=== PATIENT | male | born 1960 | race African-American/Black ===

== ENCOUNTER → 2021-08-11 | Outpatient (CLI) | payer OTHER | LOC: M RAD 10:44 | PROVIDERS: ATTEND Internal Medicine | DX: R80.9 Proteinuria, unspecified (principal) ==

== ENCOUNTER 2022-03-21 20:08 | Emergency (ER) | payer OTHER ==
[2022-03-21] MEDS ORDERED: ISOVUE-370 76% 100ML VIAL As Ordered ONE ×2 (20:17→21:12)
[2022-03-21 20:28] LABS: VENOUS BASE EXCESS 0.7 (-2.0-2.0); VENOUS HCO3 27.6 MEQ/L (23.0-27.0); VENOUS O2 SATURATION 63.5 % (60.0-80.0); VENOUS PARTIAL PRESSURE CO2 52.6 mmHg (38.0-50.0); VENOUS PARTIAL PRESSURE O2 36.4 mmHg (30.0-50.0); VENOUS PH 7.337 UNITS (7.330-7.430); VENOUS STANDARD HCO3 24.2 MEQ/L; VENOUS TOTAL CO2 29.2 MEQ/L (24.0-28.0)
[2022-03-21 20:33] LABS: BASO # 0.1 10^3/uL (0.0-0.2); BASO % 1.1 % (0.0-1.0); EOS # 0.1 10^3/uL (0.0-0.5); EOS % 0.8 % (0.0-3.0); HEMATOCRIT 43.2 % (42.0-52.0); HEMOGLOBIN 14.2 g/dl (13.5-17.5); LYMPH # 1.5 10^3/uL (1.5-5.0); LYMPH % 24.2 % (24.0-44.0); MEAN CORPUSCULAR HGB CONC 32.9 g/dl (32.0-36.5); MEAN CORPUSCULAR VOLUME 91.1 fl (80.0-96.0); MONO # 0.6 10^3/uL (0.0-0.8); MONO % 9.4 % (2.0-8.0); NEUTROPHILS # 4.1 10^3/uL (1.5-8.5); NEUTROPHILS % 63.9 % (36.0-66.0); PLATELET COUNT, AUTOMATED 235 10^3/uL (150-450); RED BLOOD COUNT 4.74 10^6/uL (4.30-6.10); WHITE BLOOD COUNT 6.4 10^3/uL (4.0-10.0)
[2022-03-21 20:44] LABS: HEMOGLOBIN A1c 10.1 % (4.0-6.0)
[2022-03-21 20:45] LABS: INR 1.11; PARTIAL THROMBOPLASTIN TIME 28.8 SECONDS (24.8-34.2); PROTHROMBIN TIME 14.5 SECONDS (12.5-14.5)
[2022-03-21] MEDS ORDERED: TENECTEPLASE 50 MG KIT (TNKase) IVP ONE (20:45)
[2022-03-21 20:56] LABS: LIPASE 31 U/L (12-53)
[2022-03-21 20:57] LABS: ETHYL ALCOHOL (ETHANOL) 0.005 % (0.000-0.010)
[2022-03-21 20:58] LABS: ALBUMIN 3.2 G/DL (3.2-5.2); ALKALINE PHOSPHATASE 82 U/L (46-116); ALT/SGPT 120 U/L (7.0-40); AST/SGOT 82 U/L (<34); BILIRUBIN,DIRECT 0.3 MG/DL (<0.4); BILIRUBIN,TOTAL 0.7 MG/DL (0.3-1.2); BLOOD UREA NITROGEN 15 MG/DL (9-23); CARBON DIOXIDE LEVEL 26 MMOL/L (20-31); CHLORIDE LEVEL 105 MMOL/L (98-107); CK-MB VALUE MASS 1.3 NG/ML (<3.6); CPK CREATINE PHOSPHOKINASE 192 U/L (46-171); CREATININE FOR GFR 1.19 MG/DL (0.70-1.30); GLOMERULAR FILTRATION RATE > 60.0 (>49); GLUCOSE, FASTING 242 MG/DL (74-106); MB/CK RELATIVE INDEX 0.67 (< OR =4); POTASSIUM SERUM 4.9 MMOL/L (3.5-5.1); SODIUM LEVEL 141 MMOL/L (136-145); TOTAL PROTEIN 6.2 G/DL (5.7-8.2)
[2022-03-21 20:59] LABS: OSMOLALITY SERUM 303 MOSM/KG (280-301)
[2022-03-21 21:03] LABS: RSV AMPLIFICATION NEGATIVE (NEGATIVE)
[2022-03-21] MEDS ORDERED: LABETALOL 100MG/20ML VIAL IV PRN (21:10)
[2022-03-21] MEDS ORDERED: SODIUM CHLORIDE 0.9% INJ 10 ML SYR IV ONE ×2 (22:00)
[2022-03-21] MEDS ORDERED: NS 1,000 ML IV ONE (22:00)
[2022-03-21 22:16] VITALS: BP 204/104
[2022-03-21 22:17] LABS: CK-MB VALUE MASS 1.5 NG/ML (<3.6)
[2022-03-21 22:19] LABS: MB/CK RELATIVE INDEX 0.82 (< OR =4)
== END 2022-03-21 22:27 | disposition short-term general hospital (02) ==
LOC: EDBD 20:08 → M ED 21:29
DX: I63.9 Cerebral infarction, unspecified (principal); I99.8 Other disorder of circulatory system; E11.9 Type 2 diabetes mellitus without complications; E78.5 Hyperlipidemia, unspecified

== ENCOUNTER 2022-06-27 09:26 | Outpatient (RCR) | payer OTHER | END 2022-07-01 | LOC: M OT 09:26 | PROVIDERS: ATTEND Physical Medicine & Rehabilitation | DX: G46.3 Brain stem stroke syndrome (principal) ==

== ENCOUNTER → 2022-06-27 | Outpatient (CLI) | payer OTHER ==
[~2022-06-27] MED LIST: BARIUM SULFATE 700 MG TABLET (E-Z-DISK) As Ordered ONE; E-Z-PAQUE 96% w/w SUSP 176GM BTL As Ordered ONE; VARIBAR NECTAR 40% w/v 240ML SUSP BTL As Ordered ONE; VARIBAR PUDDING 40% w/v 230ML TUBE As Ordered ONE
== END ==
LOC: M RAD 10:43
PROVIDERS: ATTEND Internal Medicine
DX: I69.321 Dysphasia following cerebral infarction (principal)

== ENCOUNTER 2022-07-25 10:20 | Outpatient (RCR) | payer OTHER | END 2022-08-01 | LOC: M ST 10:20 | PROVIDERS: ATTEND Physical Medicine & Rehabilitation | DX: G46.3 Brain stem stroke syndrome (principal); R13.12 Dysphagia, oropharyngeal phase; I69.390 Apraxia following cerebral infarction ==

== ENCOUNTER 2022-08-28 09:54 | Outpatient (RCR) | payer OTHER | END 2022-08-31 | LOC: M ST 09:54 | PROVIDERS: ATTEND Physical Medicine & Rehabilitation | DX: G46.3 Brain stem stroke syndrome (principal); R13.12 Dysphagia, oropharyngeal phase; I69.390 Apraxia following cerebral infarction ==

== ENCOUNTER 2022-09-27 11:14 | Outpatient (RCR) | payer OTHER | END 2022-10-01 | LOC: M ST 11:14 | PROVIDERS: ATTEND Physical Medicine & Rehabilitation | DX: G46.3 Brain stem stroke syndrome (principal) ==

== ENCOUNTER 2022-10-07 20:30 | Emergency (ER) | payer OTHER ==
[~2022-10-07] VITALS: Ht 180.3 cm; Wt 96.8 kg
[2022-10-08 00:21] VITALS: BP 210/102
[2022-10-08] MEDS ORDERED: LABETALOL 100MG/20ML VIAL IV STA (00:21)
[2022-10-08] MEDS ORDERED: APIXABAN 5 MG TAB (ELIQUIS) PO ONE (00:30)
[2022-10-08 01:30] VITALS: BP 158/72; TEMP 98
[2022-10-08 01:35] LABS: BASO % 0.6 % (0.0-1.0); EOS # 0.1 10^3/uL (0.0-0.5); EOS % 1.5 % (0.0-3.0); HEMATOCRIT 39.6 % (42.0-52.0); HEMOGLOBIN 13.3 g/dl (13.5-17.5); LYMPH # 1.5 10^3/uL (1.5-5.0); MEAN CORPUSCULAR HEMOGLOBIN 29.5 pg (27.0-33.0); MEAN CORPUSCULAR HGB CONC 33.6 g/dl (32.0-36.5); MEAN CORPUSCULAR VOLUME 87.8 fl (80.0-96.0); MONO # 0.6 10^3/uL (0.0-0.8); MONO % 11.9 % (2.0-8.0); NEUTROPHILS # 2.4 10^3/uL (1.5-8.5); NEUTROPHILS % 52.8 % (36.0-66.0); PLATELET COUNT, AUTOMATED 149 10^3/uL (150-450); RED BLOOD COUNT 4.51 10^6/uL (4.30-6.10); WHITE BLOOD COUNT 4.6 10^3/uL (4.0-10.0)
[2022-10-08 01:45] VITALS: O2SAT 96
== END 2022-10-08 02:07 | disposition home or self-care (01) ==
LOC: EDBD 20:30 → M ED 20:30
DX: Z04.1 Encounter for examination and observation following transport accident (principal); E78.5 Hyperlipidemia, unspecified; Z86.73 Personal history of transient ischemic attack (TIA), and cerebral infarction without residual deficits
CPT/HCPCS: 71045; 73030; 80047; 85025; 96374; 99284; J1920

== ENCOUNTER 2022-10-25 12:46 | Outpatient (RCR) | payer OTHER | END 2022-11-01 | LOC: M ST 12:46 | PROVIDERS: ATTEND Physical Medicine & Rehabilitation | DX: G46.3 Brain stem stroke syndrome (principal); R47.01 Aphasia ==

== ENCOUNTER 2022-12-25 11:14 | Outpatient (RCR) | payer OTHER | END 2023-01-01 | LOC: M ST 11:14 | PROVIDERS: ATTEND Internal Medicine | DX: G46.3 Brain stem stroke syndrome (principal); R47.01 Aphasia ==

== ENCOUNTER 2023-01-28 12:11 | Outpatient (RCR) | payer OTHER | END 2023-01-31 | LOC: M ST 12:11 | PROVIDERS: ATTEND Internal Medicine | DX: G46.3 Brain stem stroke syndrome (principal); R47.01 Aphasia ==

== ENCOUNTER 2023-02-07 11:52 | Outpatient (RCR) | payer OTHER | END 2023-03-03 | LOC: M ST 11:52 | PROVIDERS: ATTEND Internal Medicine | DX: G46.3 Brain stem stroke syndrome (principal); R47.01 Aphasia ==

== ENCOUNTER 2023-03-06 12:43 | Outpatient (RCR) | payer OTHER | END 2023-04-03 | LOC: M ST 12:43 | PROVIDERS: ATTEND Internal Medicine | DX: G46.3 Brain stem stroke syndrome (principal); R47.01 Aphasia ==

== ENCOUNTER → 2023-12-17 | Outpatient (CLI) | payer OTHER ==
[2023-12-17 11:07] LABS: BLOOD UREA NITROGEN 13 MG/DL (9-23); CREATININE FOR GFR 1.28 MG/DL (0.70-1.30); GLOMERULAR FILTRATION RATE > 60.0 (>49)
== END ==
LOC: M LAB 09:41
PROVIDERS: ATTEND Otolaryngology
DX: J38.01 Paralysis of vocal cords and larynx, unilateral (principal); F45.8 Other somatoform disorders; R49.0 Dysphonia

== ENCOUNTER → 2023-12-20 | Outpatient (CLI) | payer OTHER ==
[~2023-12-20] MED LIST changes: -BARIUM SULFATE 700 MG TABLET (E-Z-DISK) As Ordered ONE; -E-Z-PAQUE 96% w/w SUSP 176GM BTL As Ordered ONE; +ISOVUE-370 76% 100ML VIAL As Ordered ONE; -VARIBAR NECTAR 40% w/v 240ML SUSP BTL As Ordered ONE; -VARIBAR PUDDING 40% w/v 230ML TUBE As Ordered ONE
== END ==
LOC: M RAD 15:21
PROVIDERS: ATTEND Otolaryngology
DX: J38.01 Paralysis of vocal cords and larynx, unilateral (principal)
CPT/HCPCS: 70490; 71260; Q9967